=== PATIENT | female | born 1965 | race African-American/Black ===

== ENCOUNTER 2016-10-17 18:34 | Inpatient (IN) | payer OTHER ==
--- NOTE | ~2016-10-17 | HP ---
Unit #: [id number] #: [id number] Patient: JUMANA MAURO [id number] [place] [address] [id number] I MR#: [id number] NAME: JUMANA MAURO ROOM: P181 Age: 51 Sex: F Admission Date: 10/17/2016 : 1965 Attending Physician: Russ Sellers M.D. Admitting Physician: Russ Sellers M.D. Primary Care Physician: Generic Doctor Not In System HISTORY AND PHYSICAL HISTORY OF PRESENT ILLNESS Jumana is a 51 year old admitted to [facility] because of her drug use. She snorts heroin. PAST MEDICAL HISTORY Long history of opioid abuse to include snorting heroin. PAST SURGICAL HISTORY Nothing reported. ALLERGIES No known drug allergies. SOCIAL HISTORY Smokes one pack per day. Denies alcohol. Admits to a long history of illicit substance abuse to include snorting heroin. FAMILY HISTORY Medically noncontributory. REVIEW OF SYSTEMS CONSTITUTIONAL: No fever or chills. HEENT: Denies any sore throat, ear pain or runny nose. CARDIOVASCULAR: Denies chest pain, irregular heart rhythm or palpitations. CHEST: Denies shortness of breath or cough. No hemoptysis. GASTROINTESTINAL: Denies nausea, vomiting, diarrhea or chronic constipation. ENDOCRINE: Denies history of increased thirst or urination. No recent significant weight loss or gain. GENITOURINARY: Denies dysuria, frequency, or hematuria. SKIN: Denies any rashes. HEMATOLOGIC: Denies history of increased bleeding or bruising. MUSCULOSKELETAL: Denies any hot, swollen joints. No generalized muscle pain. NEUROLOGIC: Denies problems with vision or speech. No frequent, severe headaches. No numbness, tingling or weakness in any extremities. Denies loss of bladder or bowel control. CURRENT MEDICATIONS 1. Detox protocol. 2. Zoloft 50 mg q. day. PHYSICAL EXAMINATION Unit #: [id number] #: [id number] Patient: JUMANA MAURO GENERAL: Alert, well nourished. No apparent distress. VITAL SIGNS: Blood pressure 142/88, heart rate 80, respirations 16, and temperature 98.6. WEIGHT: 195. HEIGHT: 5 feet 6 inches. SKIN: Warm and dry without rash or lesion. HEENT: Normocephalic. TMs not viewed. Oral and nasal passages clear. Conjunctivae clear. PERRLA. EOMs intact. NECK: Supple without lymphadenopathy or thyromegaly. HEART: Regular rate and rhythm without murmur. LUNGS: Clear. ABDOMEN: Soft, nontender. : Not done. EXTREMITIES: No evidence of cyanosis, clubbing or edema. Moves all without focal deficit. NEUROLOGICAL: Grossly within normal limits. Cranial Nerves: II: Visual hankins are intact. III, IV AND : Extraocular movements are intact. Pupils are equal, round and reactive to light. V: Facial sensation is grossly normal. VII: Facial movements and expression are normal. VIII: Auditory acuity grossly intact. IX, X: Uvula is midline. Phonation is normal. XI: Patient shrugs shoulders and turns head normally. XII: Tongue protrudes in the midline. Sensory and Motor Function: Sensory and motor sensation is grossly normal. Motor: moves all extremities well. Coordination: Gait is normal. Deep Tendon Reflexes: Intact. IMPRESSION Psychiatric admission. RECOMMENDATIONS PSYCHIATRIC: Per psychiatrist. MEDICAL: I see no contraindication to participate in this facility's activities. MEDICAL PROGNOSIS Good. MEDICAL CONDITION Stable. Dictated by... Natasha Hernandez P.A.-C. for Annalee De La Garza/avinash TD: 10/19/2016 07:09 JOB #: [id number] Unit #: [id number] #: [id number] Patient: JUMANA MAURO HISTORY AND PHYSICAL Page 1 of 1 X Natasha Hernandez X HISTORY AND PHYSICAL
--- NOTE | ~2016-10-17 | PN ---
Unit #: [id number] #: [id number] Patient: JUMANA MUARO [id number] [facility] [address] [place] [address] [id number] I MR#: [id number] NAME: JUMANA MAURO ROOM: P181 Age: 51 Sex: F Admission Date: 10/17/2016 : 1965 Attending Physician: Russ Sellers M.D. Admitting Physician: Russ Sellers M.D. Primary Care Physician: Generic Doctor Not In System [facility] PROGRESS NOTES DATE 10/20/2016 DISCUSSION Jumana is attending groups and activities this morning. Her detox appears to be lower and she has a brighter affect today. She is alert and fully oriented with no psychosis and no suicidal ideation. ASSESSMENT Opiate dependence. PLAN Continue detox protocol and anticipate discharge tomorrow. Dictated by... Annalee Bello/omar TD: 10/21/2016 06:48 JOB #: [id number] [facility] PROGRESS NOTES Page 1 of 1 X Russ Sellers MD PROGRESS NOTE
--- NOTE | ~2016-10-17 | PN ---
Unit #: [id number] #: [id number] Patient: JUAN MAURO [id number] [facility] [address] [place] [address] [id number] I MR#: [id number] NAME: JUAN MAURO ROOM: P181 Age: 51 Sex: F Admission Date: 10/17/2016 : 1965 Attending Physician: Russ Sellers M.D. Admitting Physician: Russ Sellers M.D. Primary Care Physician: Generic Doctor Not In System [facility] PROGRESS NOTES REVISED REPORT DATE 10/22/2016 DISCUSSION Upon today's assessment the patient was found attending her art group. She reports that she is "okay" but has complaints of stomach cramps, mild diffused joint aches pain and reports that medication is being given for detox at this time are affective. At this time she denies any suicidal or homicidal ideations. She denies auditory or visual hallucinations and no overt symptoms of psychosis was noted. ASSESSMENT Opioid dependence PLAN Continue detox protocol and encourage participation in groups programming. SIGNING PHYSICIAN REVISED Dictated by... Veronika Lima APRN for Annalee Bello/rufina TD: 10/25/2016 00:11 JOB #: [id number] [facility] PROGRESS NOTES Page 1 of 1 X VERONIKA LIMA PROGRESS NOTE
--- NOTE | ~2016-10-17 | PN ---
Unit #: [id number] #: [id number] Patient: JUAN MAURO [id number] [facility] [address] [place] [address] [id number] I MR#: [id number] NAME: JUAN MAURO ROOM: 81 Age: 51 Sex: F Admission Date: 10/17/2016 : 1965 Attending Physician: Russ Sellers M.D. Admitting Physician: Russ Sellers M.D. Primary Care Physician: Generic Doctor Not In System [facility] PROGRESS NOTES REVISED REPORT DATE 10/23/2016 DISCUSSION Upon today's assessment the patient still has complaints of stomach pain, headache and mild joint discomfort at this time. She reports that her anxiety is a bit elevated today. Today concluded the detox protocol at this time and she reports that she is no longer receiving detox medications and feels like her anxiety is somewhat increased. She complained of poor sleep as evidenced by frequent awakenings at this time. Discussed the patient's increased anxiety with her and we will be adding vistaril 50 mg p.r.n. q.h.s. as needed for elevated levels of anxiety at this time. The patient verbalized understanding. ASSESSMENT Opioid dependence. PLAN We will continue to monitor the patient and encourage her to participate in groups and activities. SIGNING PHYSICIAN REVISED Dictated by... CHRISTINA Matias/rufina TD: 10/25/2016 00:15 JOB #: [id number] Unit #: [id number] #: [id number] Patient: JUAN MAURO PROGRESS NOTES Page 1 of 1 X MELINA LIMA PROGRESS NOTE
--- NOTE | ~2016-10-17 | PN ---
Unit #: [id number] #: [id number] Patient: JUMANA MAURO [id number] [facility] [address] [place] [address] [id number] I MR#: [id number] NAME: JUMANA MAURO ROOM: P181 Age: 51 Sex: F Admission Date: 10/17/2016 : 1965 Attending Physician: Russ Sellers M.D. Admitting Physician: Russ Sellers M.D. Primary Care Physician: Generic Doctor Not In System [facility] PROGRESS NOTES DATE 10/19/2016 DISCUSSION Jumana continues to have active opiate detox symptoms today. Her mood is irritable and labile with a congruent affect. She is alert and fully oriented. Her memory and concentration are intact. Her thought processes are logical with no active psychosis. ASSESSMENT Opioid dependence. PLAN Continue current treatment plan and introduction of medications. Dictated by... Annalee Bello/john TD: 10/20/2016 17:38 JOB #: [id number] [facility] PROGRESS NOTES Page 1 of 1 X Russ Sellers MD PROGRESS NOTE
--- NOTE | ~2016-10-17 | DS ---
Unit #: [id number] #: [id number] Patient: JUMANA MAURO [id number] [facility] [address] [place] [address] [id number] I MR#: [id number] NAME: JUMANA MAURO ROOM: [facility] Age: 51 Sex: F Admission Date: 10/17/2016 : 1965 Discharge Date: 10/24/2016 Attending Physician: Russ Sellers M.D. DISCHARGE SUMMARY REASON FOR ADMISSION Jumana is a 51-year-old woman who came into the hospital reporting ongoing heroin use for the past 3 or 4 months and recent relapse after completing an outpatient chemical dependence program. She plans to go to the [facility], but needs to detox and was admitted for stabilization. DIAGNOSTIC STUDIES LABORATORY RESULTS: Please see hospital chart. HOSPITAL COURSE Jumana was admitted and placed on the opioid detox protocol. Prilosec was continued and Zoloft 50 mg daily was added for depression, Vistaril was later provided on a p.r.n. basis for anxiety. She participated appropriately in unit groups and activities and on the date of discharge, she was able to contract for safety with followup through [facility]. DISCHARGE DIAGNOSES AXIS I: Opioid dependence with withdrawal, uncomplicated; major depressive disorder. AXIS II: No diagnosis. AXIS III: History of gastroesophageal reflux disease. AXIS IV: AXIS V: DISCHARGE INSTRUCTIONS [facility]. DISCHARGE MEDICATIONS Zoloft 50 mg daily for depression and Protonix 40 mg daily for GERD. CONDITION AT DISCHARGE Improved. PROGNOSIS Good. DIET AND ACTIVITY Ad alexsander. Dictated by... Unit #: [id number] #: [id number] Patient: JUMANA MAURO Russ Sellers M.D. [facility]/jose antonio TD: 10/31/2016 14:07 JOB #: [id number] DISCHARGE SUMMARY Page 1 of 1 X Russ Sellers MD X DISCHARGE SUMMARY
--- NOTE | ~2016-10-17 | PN ---
Unit #: [id number] #: [id number] Patient: JUMANA MAURO [id number] [facility] [address] [place] [address] [id number] I MR#: [id number] NAME: JUMANA MAURO ROOM: P181 Age: 51 Sex: F Admission Date: 10/17/2016 : 1965 Attending Physician: Russ Sellers M.D. Admitting Physician: Russ Sellers M.D. Primary Care Physician: Generic Doctor Not In System [facility] PROGRESS NOTES DATE OF SERVICE 10/21/2016 DISCUSSION Jumana continues to have wezu-au-fbyvcosr detox symptoms today and also had ongoing depression, irritability and some suicidal thoughts. She is alert and fully oriented. Her memory and concentration are fair. Her thought processes are logical with no active psychosis. ASSESSMENT Major depression. Opiate dependence. PLAN We will continue current treatment plan. Dictated by... Annalee Bello/rufina TD: 10/24/2016 22:19 JOB #: [id number] [facility] PROGRESS NOTES Page 1 of 1 X Russ Sellers MD PROGRESS NOTE
--- NOTE | ~2016-10-17 | PA ---
Unit #: [id number] #: [id number] Patient: JUMANA MAURO [id number] [facility] [address] [place] [address] [id number] I MR#: [id number] NAME: JUMANA MAURO ROOM: [facility] Age: 51 Sex: F Admission Date: 10/17/2016 : 1965 Date of Assessment: 10/18/2016 Attending Physician: Russ Sellers M.D. Admitting Physician: Russ Sellers M.D. Primary Care Physician: Generic Doctor Not In System PSYCHIATRIC ASSESSMENT INFORMANTS Patient, reliable; OLOP, reliable. CHIEF COMPLAINT "heroin and suicide". HISTORY OF PRESENT ILLNESS Ms. Mauro is a 51-year-old woman with a history of heroin use for the past 3 to 4 months and a recent completion of [facility] program with recent relapse. She had increasing suicidal ideation and active detox symptomatology. She was dropped off by the [facility] when she was considered to sick to stay at their facility. She was admitted for protection and for polysubstance detox. PAST PSYCHIATRIC HISTORY The patient has been at the [facility] program and an outpatient 12-step groups in the past. She does not currently take any psychiatric medications. FAMILY PSYCHIATRIC HISTORY There is a family history of alcohol and drug issues. 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 She is a high school graduate and has been erratically employed with a limited income. She recently had a relationship with a man in the program, which is now broken up. PAST MEDICAL HISTORY The patient suffers from GERD. MEDICATIONS Prilosec 20 mg daily. ALLERGIES No known medication allergies. SUBSTANCE USE HISTORY As noted above. MENTAL STATUS EXAMINATION Jumana presented as a mildly disheveled woman, who appeared older than her stated age. She was cooperative with the examination. Her speech was Unit #: [id number] #: [id number] Patient: JUMANA MAURO soft, terse, but easily understood. Her musculoskeletal examination was calm. Her mood was depressed with a congruent affect. She was alert and fully oriented. Her memory and concentration were fair to good. Her thought processes were goal directed with no active psychosis. She admitted suicidal ideation and could not contract for safety outside of the hospital. Insight and judgment were fair. Fund of knowledge and abstraction were intact. ASSETS AND LIABILITIES The patient knows local resources and presents voluntarily for treatment. Liabilities include homeless status and lack of current treatment and sobriety. ADMITTING DIAGNOSES AXIS I: Opioid dependence with withdrawal, uncomplicated, F11.23. Major depressive disorder. AXIS II: No diagnosis. AXIS III: GERD. AXIS IV: AXIS V: PSYCHIATRIC PLAN The patient was admitted and placed on the opioid detox protocol. Suicide precautions were also be initiated. We will continue her Prilosec and add Zoloft 50 mg daily for depression. She will enroll in dual diagnosis groups and activities. Physical examination and laboratory studies will be ordered and reviewed. TREATMENT GOALS Resolution of intoxication, resolution of SI, improvement in insight, and improvement in coping skills. DISCHARGE PLANNING Follow up with [facility]. ESTIMATED LENGTH OF STAY 5 days. Dictated by... Russ Sellers M.D. /jose antonio TD: 10/18/2016 17:03 JOB #: [id number] Unit #: [id number] #: [id number] Patient: JUMANA MAURO PSYCHIATRIC ASSESSMENT Page 1 of 1 X Russ Sellers MD X PSYCHIATRIC ASSESSMENT
[2016-10-18 09:55] LABS: BASOPHIL# 0.1 X10e3 (0-0.3); BASOPHIL% 0.7 % (0-2.5); EOSINOPHIL# 0.2 X10e3 (0-0.7); EOSINOPHIL% 2.3 % (0.0-7.0); HEMATOCRIT 33.9 % (35.0-45.0); HEMOGLOBIN 10.9 gm/dL (12.0-16.0); LYMPHOCYTE# 2.4 X10e3 (1.0-3.5); LYMPHOCYTE% 33.1 % (17.0-45.0); MEAN CELL VOLUME 88.2 FL (83-96); MEAN CORPUSCULAR HEMOGLOBIN 28.4 PG (28-34); MEAN CORPUSCULAR HGB CONC 32.2 g/dL (30-36); MONOCYTE# 0.6 X10e3 (0-1.0); MONOCYTE% 8.7 % (3.0-12.0); NEUTROPHIL# 4.1 X10e3 (1.5-7.1); NEUTROPHIL% 55.2 % (40-75); PLATELET COUNT 426 X10e3 (140-420); RED BLOOD COUNT 3.84 X10e (3.90-5.30); RED CELL DISTRIBUTION WIDTH 15.7 % (11.0-15.5); WHITE BLOOD COUNT 7.4 X10e3 (4.0-10.5)
[2016-10-18 10:04] LABS: ALBUMIN SERUM 3.1 g/dL (3.5-5.0); BILIRUBIN,TOTAL 0.9 mg/dL (0.2-2.0); CALCIUM SERUM 8.8 mg/dL (8.4-10.2); CREATININE SERUM 0.8 mg/dL (0.6-1.4); GLOM FILT RATE Estimated 97.6 mL/min (>60); POTASSIUM 3.4 mmol/L (3.5-5.1); PROTEIN TOTAL SERUM 5.6 g/dL (6.0-8.3)
[2016-10-18 10:07] LABS: DIFF IND NO
[2016-10-19 13:03] LABS: AMPHETAMINE NEG (NEG); BARBITURATES NEG (NEG); BENZODIAZEPINES NEG (NEG); COCAINE NEG (NEG); MARIJUANA NEG (NEG); OPIATES POS (NEG); TRICYCLIC ANTIDEPRESSANTS NEG (NEG); U METHADONE NEG (NEG)
== END 2016-10-24 12:11 | DRG 897 ==
LOC: P1E 20:45
PROVIDERS: Psychiatry & Neurology Psychiatry
PROC: HZ2ZZZZ Detoxification Services for Substance Abuse Treatment (ICD-10-PCS; principal; 2016-10-17)
DX: F11.23 Opioid dependence with withdrawal (principal); R45.851 Suicidal ideations; K21.9 Gastro-esophageal reflux disease without esophagitis; F17.210 Nicotine dependence, cigarettes, uncomplicated
CPT/HCPCS: 80053; 80307; 85025; 86592